=== PATIENT | male | born 1955 | race Caucasian/White ===

== ENCOUNTER 2018-03-13 07:20 | Day surgery (SDC) | payer BC, OTHER ==
[2018-03-13] MEDS ORDERED: PROPOFOL 500 MG/50 ML EMU IV ONE (07:57)
[2018-03-13 09:20] VITALS: TEMP 97.4
[2018-03-13 10:03] VITALS: BP 165/82; PULSE 61; RESP 20; O2SAT 99
== END 2018-03-13 10:12 | disposition home or self-care (01) ==
LOC: SURG 07:20
PROVIDERS: ATTEND Internal Medicine Gastroenterology
DX: Z12.11 Encounter for screening for malignant neoplasm of colon (principal); R10.9 Unspecified abdominal pain; Q43.8 Other specified congenital malformations of intestine; D12.5 Benign neoplasm of sigmoid colon
CPT/HCPCS: 99001; J2704

== ENCOUNTER 2018-05-12 13:54 | Emergency (ER) | payer BC ==
[2018-05-12 14:05] VITALS: BP 143/86; PULSE 94; RESP 16; TEMP 97; O2SAT 93
[2018-05-12] MEDS ORDERED: LIDOCAINE HCL 1% MPF 30 SOL ONE (14:23)
[2018-05-12] MEDS ORDERED: LIDOCAINE HCL 1% MDV 50 ML SOL SC ONE (14:23)
[2018-05-12] MEDS ORDERED: BACITRACIN 500 U/GM OIN TOP ONE ×2 (14:53→14:54)
[2018-05-12] MEDS ORDERED: TDAP VACCINE 0.5 ML SUS IM ONE ×2 (15:06→15:07)
== END 2018-05-12 15:12 | disposition home or self-care (01) ==
LOC: ED 13:54
DX: S01.81XA Laceration without foreign body of other part of head, initial encounter (principal); W00.0XXA Fall on same level due to ice and snow, initial encounter; I10 Essential (primary) hypertension; S00.31XA Abrasion of nose, initial encounter
CPT/HCPCS: 12011; 90471; 90715; 99284; A9270-GY; J2001